=== PATIENT | female | born 1960 | race Caucasian/White ===

== ENCOUNTER 2018-04-19 08:08 | Day surgery (SDC) | payer BC, OTHER ==
[2018-04-19] MEDS: NS 1,000 ML IV (08:30)
[2018-04-19] MEDS ORDERED: PROPOFOL 200 MG/20 ML VIAL As Ordered (09:37)
== END 2018-04-19 10:15 | disposition home or self-care (01) ==
LOC: M OPP 08:08
DX: K51.20 Ulcerative (chronic) proctitis without complications (principal); F17.210 Nicotine dependence, cigarettes, uncomplicated; Z78.0 Asymptomatic menopausal state; Z91.89 Other specified personal risk factors, not elsewhere classified; Z80.3 Family history of malignant neoplasm of breast; Z80.42 Family history of malignant neoplasm of prostate
CPT/HCPCS: 45380

== ENCOUNTER 2018-07-12 22:51 | Emergency (ER) | payer BC, OTHER ==
[2018-07-12 23:28] LABS: BASO # 0.1 10^3/uL (0.0-0.2); BASO % 0.3 % (0.0-1.0); EOS % 0.1 % (0.0-3.0); HEMATOCRIT 40.9 % (36.0-47.0); HEMOGLOBIN 13.9 g/dl (12.0-15.5); IMMATURE GRANULOCYTE % 0.4 % (0-3.0); LYMPH # 1.2 10^3/uL (1.5-4.5); LYMPH % 6.9 % (24.0-44.0); MEAN CORPUSCULAR VOLUME 97.1 fl (80.0-96.0); MONO # 0.6 10^3/uL (0.0-0.8); MONO % 3.4 % (0.0-5.0); NEUTROPHILS # 15.6 10^3/uL (1.8-7.7); NEUTROPHILS % 88.9 % (36.0-66.0); PLATELET COUNT, AUTOMATED 296 10^3/uL (150-450); RED BLOOD COUNT 4.21 10^6/uL (4.00-5.40); RED CELL DISTRIBUTION WIDTH 11.8 % (11.5-14.5); WHITE BLOOD COUNT 17.5 10^3/uL (4.0-10.0)
[2018-07-12] MEDS: ONDANSETRON 4MG/2ML VIAL (J2405) IV (23:33)
[2018-07-12 23:58] LABS: LACTIC ACID SEPSIS PROTOCOL 1.4 MMOL/L (0.4-2.0)
[2018-07-13] MEDS: MORPHINE 4 MG/ML 1ML VIAL/SYRINGE (J2270) IV (00:01)
[2018-07-13 00:16] LABS: ALBUMIN/GLOBULIN RATIO 1.29 (1.00-1.93); ALKALINE PHOSPHATASE 86 U/L (45-117); ALT/SGPT 23 U/L (12-78); AMYLASE 18 U/L (25-115); ANION GAP 10 MEQ/L (8-16); AST/SGOT 20 U/L (7-37); BILIRUBIN,DIRECT < 0.1 MG/DL (0.0-0.2); BILIRUBIN,TOTAL 0.4 MG/DL (0.2-1.0); BLOOD UREA NITROGEN 12 MG/DL (7-18); CALCIUM LEVEL 8.7 MG/DL (8.5-10.1); CARBON DIOXIDE LEVEL 24 MEQ/L (21-32); CHLORIDE LEVEL 106 MEQ/L (98-107); CK-MB VALUE MASS < 1.0 NG/ML (<3.6); CPK CREATINE PHOSPHOKINASE 88 U/L (26-192); CREATININE FOR GFR 0.63 MG/DL (0.55-1.30); GLOMERULAR FILTRATION RATE > 60.0 (>51); GLUCOSE, FASTING 185 MG/DL (70-100); LIPASE 58 U/L (73-393); MB/CK RELATIVE INDEX 1.14 (< OR =4); POTASSIUM SERUM 4.2 MEQ/L (3.5-5.1); SODIUM LEVEL 140 MEQ/L (136-145); TOTAL PROTEIN 7.1 GM/DL (6.4-8.2); TROPONIN I < 0.02 NG/ML (< 0.10)
[2018-07-13] MEDS ORDERED: ISOVUE-370 76% 100ML VIAL (Q9967) As Ordered (00:26)
[2018-07-13] MEDS: GI COCKTAIL 50ML BTL(HYOSCYAMINE/MAALOX/LIDOCAINE VISCOUS)(1:3:1) PO (00:48)
[2018-07-13] MEDS: METOCLOPRAMIDE INJ 10MG/2ML VIAL (J2765) IV (00:48)
[2018-07-13] MEDS: PANTOPRAZOLE 40MG TAB (PROTONIX) PO (02:16)
== END 2018-07-13 02:41 | disposition home or self-care (01) ==
LOC: M ED 22:51
DX: K21.9 Gastro-esophageal reflux disease without esophagitis (principal); K27.3 Acute peptic ulcer, site unspecified, without hemorrhage or perforation
CPT/HCPCS: J2270

== ENCOUNTER → 2021-05-28 | Outpatient (CLI) | payer BC ==
[~2021-05-28] MED LIST: CIPR-249 PO; FLAG500T PO; MULTCAP PO; PROT1TAB2 PO; SUCR1SS PO; ZOFR4TAB14 PO
--- NOTE | 2021-05-28 08:13 | REPMRS ---
Patient History The patient states she had a clinical breast exam in 2020. Patient is postmenopausal and is nulliparous. Family history of breast cancer at age 65 in mother. No breast complaints today Patient signed the MRS sheet Priors done @ [facility]- on PACS Patient Identification Verified Digital Woman Screen Mammo: May 28, 2021 - Exam #: [id number] Bilateral CC and MLO view(s) were taken. Technologist: Flori Minor, Technologist Prior study comparison: May 07, 2020, bilateral digital mammo screening bilat, performed at [facility]. March 15, 2019, bilateral digital mammo screening bilat, performed at [facility]. February 16, 2018, bilateral digital mammo screening bilat, performed at [facility]. FINDINGS: There are scattered fibroglandular densities. The Volpara volumetric breast density category is:B. There has been no change in the appearance of the mammogram from the prior studies. There is a mild amount of scattered fibroglandular density which is fairly symmetric. There is no interval development of dominant mass, architectural distortion, or grouped microcalcification suggestive of malignancy. 3-D tomosynthesis shows no additional findings. Assessment: BI-RADS/ACR category 1 mammogram. Negative Mammogram. Recommendation Routine screening mammogram of both breasts in 1 year (for women over age 40). This patient's [facility] Lifetime Breast Cancer Risk is estimated at 19.9 %. This mammogram was interpreted with the aid of an FDA-approved computer-aided dectection system. Electronically Signed By: Keron Yuan MD 05/28/21 0848
== END ==
LOC: M WHC 07:15
PROVIDERS: ATTEND Nurse Practitioner Adult Health
DX: Z12.31 Encounter for screening mammogram for malignant neoplasm of breast (principal)

== ENCOUNTER → 2022-06-04 | Outpatient (CLI) | payer BC, OTHER | LOC: M WHC 07:08 | PROVIDERS: ATTEND Nurse Practitioner Adult Health | DX: Z12.31 Encounter for screening mammogram for malignant neoplasm of breast (principal) ==

== ENCOUNTER → 2023-06-06 | Outpatient (CLI) | payer BC, OTHER | LOC: M WHC 09:14 | PROVIDERS: ATTEND Nurse Practitioner Adult Health | DX: Z12.31 Encounter for screening mammogram for malignant neoplasm of breast (principal) ==

== ENCOUNTER 2024-06-06 11:19 | Day surgery (SDC) | payer BC ==
[~2024-06-06] VITALS: Ht 162.6 cm; Wt 59.7 kg
[~2024-06-06 11:19] MED LIST changes: +MULTTAB61 PO
[2024-06-06] MEDS: NS 1,000 ML IV ONE (11:42)
[2024-06-06 13:18] VITALS: TEMP 97.9
[2024-06-06] MEDS ORDERED: LIDOCAINE 2% 100MG/5ML SDV (FOR ANES.) As Ordered ONE (13:19)
[2024-06-06] MEDS ORDERED: propofoL 200 MG/20 ML VIAL As Ordered ONE (13:19)
[2024-06-06 13:33] VITALS: BP 110/63; O2SAT 98
== END 2024-06-06 13:33 | disposition home or self-care (01) ==
LOC: M OPP 11:19
PROVIDERS: ATTEND Internal Medicine Gastroenterology
DX: D12.0 Benign neoplasm of cecum (principal); K63.5 Polyp of colon; K64.0 First degree hemorrhoids; K57.30 Diverticulosis of large intestine without perforation or abscess without bleeding; K51.20 Ulcerative (chronic) proctitis without complications; F17.200 Nicotine dependence, unspecified, uncomplicated

== ENCOUNTER → 2024-06-08 | Outpatient (CLI) | payer BC | LOC: M WHC 07:32 | PROVIDERS: ATTEND Nurse Practitioner Adult Health | DX: Z12.31 Encounter for screening mammogram for malignant neoplasm of breast (principal); M81.0 Age-related osteoporosis without current pathological fracture; M85.88 Other specified disorders of bone density and structure, other site ==

== ENCOUNTER → 2025-06-11 | Outpatient (CLI) | payer BC | LOC: M WHC 11:11 | PROVIDERS: ATTEND Nurse Practitioner Adult Health | DX: Z12.31 Encounter for screening mammogram for malignant neoplasm of breast (principal); R92.313 Mammographic fatty tissue density, bilateral breasts ==